=== PATIENT | female | born 1950 | race Caucasian/White ===

== ENCOUNTER 2024-08-29 08:40 | Outpatient (CLI) | payer MEDICARE, OTHER | END 2024-08-29 23:59 | disposition home or self-care (01) | LOC: RAD 08:40 | PROVIDERS: ATTEND Podiatrist Foot & Ankle Surgery | DX: M19.072 Primary osteoarthritis, left ankle and foot (principal); M25.472 Effusion, left ankle; M25.772 Osteophyte, left ankle | CPT/HCPCS: 73700 ==